=== PATIENT | male | born 1945 | race Caucasian/White ===

== ENCOUNTER 2017-11-19 08:46 | Inpatient (IN) ==
[2017-11-19] MEDS ORDERED: LEVOFLOXACIN INJ 750 MG in PREMIX 1 EACH IV STA (09:04)
[2017-11-19 09:11] LABS: Basophils # 0.2 10*3/uL (0.0-0.2); Basophils % 1.3 % (0.0-0.8); Eosinophils # 0.4 10*3/uL (0.0-0.87); Eosinophils % 3.5 % (0.00-10.9); Hematocrit 49.4 VOL% (42.0-52.0); Hemoglobin 15.7 GM/DL (14.0-18.0); Immature Granulocytes % 0.5 %; Immature Granulocytes Absolute 0.06 #; Lymphocytes # 2.4 10*3/uL (1.4-4.0); Lymphocytes % 21.5 % (21.2-54.2); Mean Corpuscular HGB Conc 31.8 GM/DL (32-36); Mean Corpuscular Hemoglobin 29 PG (27-34); Mean Platelet Volume 8.9 FL (9.6-12.0); Monocytes # 1.2 10*3/uL (0.11-0.8); Monocytes % 11.2 % (1.7-12.7); Neutrophils # 6.9 10*3/uL (1.4-7.4); Platelet Count 296 T/CUMM (130-400); Red Blood Count 5.43 MC/CUMM (3.8-5.5); Red Cell Distribution Width 14.7 % (9.3-17.3); White Blood Count 11.1 T/CUMM (4-12)
[2017-11-19] MEDS ORDERED: ALBUTEROL 2.5 MG/3 ML NEB RESP TX SCH (09:30)
[2017-11-19 09:39] LABS: Apearance,Urine CLEAR (Clear); Bilirubin,Urine Negative (Negative); Blood, Urine Negative (Negative); Glucose,Urine (UA) Negative (Negative); Hyaline Casts,Urine 4 /LPF (0-3); Ketones,Urine Negative (Negative); Mucus,Urine Occasional /LPF (Occasional); Nitrite,Urine Negative (Negative); Protein,Urine Negative; RBC,Urine 1 /HPF (0-4); Urine Color Yellow (Yellow); Urine Specific Gravity 1.009 (1.001-1.035); Urine Urobilinogen < 2.0 EU/DL (0.2-1.0); WBC,Urine <1 /HPF (0-6)
[2017-11-19 09:40] LABS: Alanine Aminotransferase 14 U/L (16-61); Albumin 3.4 G/DL (3.4-5.0); Alkaline Phosphatase 55 U/L (45-117); Aspartate Amino Transferase 16 U/L (0-37); Blood Urea Nitrogen 8 MG/DL (7-18); Calcium 8.8 MG/DL (8.5-10.1); Glucose 117 MG/DL (74-106); Osmolality,Calculated 277.4 MOS/KG (273-304); Potassium 4.2 MMOL/L (3.5-5.1); Sodium 140 MMOL/L (136-145); Total Protein 7.1 G/DL (6.4-8.3)
[2017-11-19 09:52] LABS: Barbiturates Screen,Urine Negative (Negative); Benzodiazepines Screen,Urine Positive (Negative); Cannabinoid Screen,Urine Negative (Negative); Opiate Screen,Urine Positive (Negative); Phencyclidine Screen,Urine Negative (Negative)
[2017-11-19 10:06] LABS: ABG Base Excess 1.2 MMOL/L (-2.5-2.5); ABG HCO3 35.5 MMOL/L (20-26); ABG Oxygen Saturation 95.5 % (95-100); ABG PO2 102.1 MM HG (80-95)
[2017-11-19 10:09] LABS: ABG PH 7.104 (7.35-7.45)
[2017-11-19 10:10] LABS: ABG PCO2 115.8 MM HG (35-48)
[2017-11-19] MEDS ORDERED: FUROSEMIDE 40 MG/4 ML VIAL IV STA (10:14)
[2017-11-19] MEDS ORDERED: FLUMAZENIL 0.5 MG/5 ML VIAL IV ONE (10:54)
[2017-11-19] MEDS ORDERED: NALOXONE 0.4 MG/ML VIAL ONE ×2 (10:57)
[2017-11-19] MEDS ORDERED: NALOXONE 0.4 MG/ML VIAL IV STA (11:05)
[2017-11-19] MEDS ORDERED: hydrALAZINE 20 MG/1 ML VIAL IV PRN (12:09)
[2017-11-19 13:01] LABS: Risk Ratio 2.7; VLDL CHOLESTEROL 28.8 MG/DL
[2017-11-19] MEDS: FUROSEMIDE 40 MG/4 ML VIAL IV SCH (13:27)
[2017-11-19] MEDS: methylPREDNISolone SOD SUC 40 MG/1 ML VIAL IV SCH ×2 (13:29→18:32)
[2017-11-19] MEDS: HEPARIN 5,000 UNIT/1 ML VIAL SUBCUT SCH (13:32)
[2017-11-19] MEDS: ALBUTEROL/IPRATROPIUM 3 ML NEB RESP TX SCH (13:42)
[2017-11-19 15:24] LABS: ABG Base Excess -0.7 MMOL/L (-2.5-2.5); ABG HCO3 23.8 MMOL/L (20-26); ABG Oxygen Saturation 98.6 % (95-100); ABG TCO2 28.9 MMOL/L (23-27)
[2017-11-19 15:26] LABS: ABG PH 7.168 (7.35-7.45)
[2017-11-19 15:28] LABS: ABG PCO2 90.3 MM HG (35-48)
[2017-11-19 17:11] LABS: ABG Base Excess 1.5 MMOL/L (-2.5-2.5); ABG HCO3 25.5 MMOL/L (20-26); ABG PH 7.238 (7.35-7.45); ABG PO2 57.5 MM HG (80-95); ABG TCO2 28.5 MMOL/L (23-27)
[2017-11-19 17:21] LABS: ABG PCO2 77.1 MM HG (35-48)
[2017-11-20] MEDS: ALBUTEROL/IPRATROPIUM 3 ML NEB RESP TX SCH ×5 (00:03→21:14)
[2017-11-20] MEDS: methylPREDNISolone SOD SUC 40 MG/1 ML VIAL IV SCH ×4 (00:23→18:57)
[2017-11-20] MEDS: HEPARIN 5,000 UNIT/1 ML VIAL SUBCUT SCH ×4 (00:25→21:37)
[2017-11-20 03:46] LABS: ABG Base Excess 4.8 MMOL/L (-2.5-2.5); ABG HCO3 28.6 MMOL/L (20-26); ABG Oxygen Saturation 90.6 % (95-100); ABG PCO2 66.3 MM HG (35-48); ABG PH 7.316 (7.35-7.45); ABG PO2 61.8 MM HG (80-95); ABG TCO2 29.5 MMOL/L (23-27); Allen Test Positive; Pt O2 Delivery Device BIPAP
[2017-11-20 04:36] LABS: Basophils % 0.1 % (0.0-0.8); Hematocrit 47.9 VOL% (42.0-52.0); Hemoglobin 14.7 GM/DL (14.0-18.0); Immature Granulocytes % 0.7 %; Immature Granulocytes Absolute 0.05 #; Lymphocytes # 0.5 10*3/uL (1.4-4.0); Lymphocytes % 6.1 % (21.2-54.2); Mean Corpuscular HGB Conc 30.7 GM/DL (32-36); Mean Corpuscular Hemoglobin 28 PG (27-34); Mean Corpuscular Volume 92.3 FL (87-102); Mean Platelet Volume 9.7 FL (9.6-12.0); Monocytes # 0.1 10*3/uL (0.11-0.8); Monocytes % 1.2 % (1.7-12.7); Neutrophils % 91.9 % (38.7-73.9); Platelet Count 243 T/CUMM (130-400); Red Blood Count 5.19 MC/CUMM (3.8-5.5); Red Cell Distribution Width 14.5 % (9.3-17.3); White Blood Count 7.6 T/CUMM (4-12)
[2017-11-20 04:55] LABS: Bilirubin,Total 0.5 MG/DL (0.2-1.0); Calcium 8.8 MG/DL (8.5-10.1); Osmolality,Calculated 280.4 MOS/KG (273-304); Potassium 4.9 MMOL/L (3.5-5.1); Total Protein 6.8 G/DL (6.4-8.3)
[2017-11-20 05:20] LABS: Band Neutrophils 1 % (0-10); Eosinophils 1 % (0-10); Hypochromasia 1+; Lymphocytes 5 % (20-55); Platelet Estimate Adequate; Segmented Neutrophils 93 % (50-85); Total Cells Counted 100
[2017-11-20] MEDS ORDERED: FUROSEMIDE 20 MG/2 ML VIAL ONE (08:50)
[2017-11-20] MEDS ORDERED: LEVOFLOXACIN INJ 250 MG in PREMIX 1 EACH IV SCH (09:00)
[2017-11-20] MEDS ORDERED: PANTOPRAZOLE 40 MG VIAL IV SCH (09:00)
[2017-11-20] MEDS: FUROSEMIDE 40 MG/4 ML VIAL IV SCH (09:28)
[2017-11-20] MEDS: PIPERACILLIN/TAZOBACTAM 3,375 MG in SODIUM CHLORIDE 0.9% 100 ML IV SCH ×2 (09:53→17:32)
[2017-11-20] MEDS: BENZTROPINE 0.5 MG TABLET PO SCH (21:36)
[2017-11-20] MEDS: DIVALPROEX ER 500 MG TABLET PO SCH (21:36)
[2017-11-20] MEDS: MIRTAZAPINE 15 MG TABLET PO SCH (21:36)
[2017-11-20] MEDS: rOPINIRole 1 MG TABLET PO SCH (21:36)
[2017-11-20] MEDS: OLANZapine 5 MG TABLET PO SCH (21:36)
[2017-11-20] MEDS: ZALEPLON 5 MG CAPSULE PO PRN (22:30)
[2017-11-21] MEDS: ALBUTEROL/IPRATROPIUM 3 ML NEB RESP TX SCH ×4 (01:08→19:15)
[2017-11-21] MEDS: methylPREDNISolone SOD SUC 40 MG/1 ML VIAL IV SCH ×3 (01:55→13:51)
[2017-11-21] MEDS: PIPERACILLIN/TAZOBACTAM 3,375 MG in SODIUM CHLORIDE 0.9% 100 ML IV SCH ×3 (01:58→18:25)
[2017-11-21 04:20] LABS: Basophils % 0.1 % (0.0-0.8); Hematocrit 42.3 VOL% (42.0-52.0); Hemoglobin 13.8 GM/DL (14.0-18.0); Immature Granulocytes % 0.5 %; Immature Granulocytes Absolute 0.06 #; Lymphocytes # 0.9 10*3/uL (1.4-4.0); Lymphocytes % 7.3 % (21.2-54.2); Mean Corpuscular HGB Conc 32.6 GM/DL (32-36); Mean Corpuscular Hemoglobin 29 PG (27-34); Mean Corpuscular Volume 87.2 FL (87-102); Mean Platelet Volume 9.9 FL (9.6-12.0); Monocytes # 0.4 10*3/uL (0.11-0.8); Monocytes % 3.4 % (1.7-12.7); Neutrophils # 10.8 10*3/uL (1.4-7.4); Neutrophils % 88.7 % (38.7-73.9); Platelet Count 258 T/CUMM (130-400); Red Blood Count 4.85 MC/CUMM (3.8-5.5); Red Cell Distribution Width 14.5 % (9.3-17.3); White Blood Count 12.2 T/CUMM (4-12)
[2017-11-21] MEDS: HEPARIN 5,000 UNIT/1 ML VIAL SUBCUT SCH ×3 (05:44→21:10)
[2017-11-21 05:46] LABS: Albumin 2.8 G/DL (3.4-5.0); Bilirubin,Total 0.4 MG/DL (0.2-1.0); Calcium 8.4 MG/DL (8.5-10.1); Osmolality,Calculated 284.4 MOS/KG (273-304); Potassium 4.2 MMOL/L (3.5-5.1); Total Protein 6.2 G/DL (6.4-8.3)
[2017-11-21] MEDS ORDERED: NIFEdipine 10 MG CAPSULE PO PRN (08:32)
[2017-11-21] MEDS: BENZTROPINE 0.5 MG TABLET PO SCH ×2 (08:51→21:03)
[2017-11-21] MEDS: rOPINIRole 1 MG TABLET PO SCH ×2 (08:51→21:03)
[2017-11-21] MEDS: PANTOPRAZOLE 40 MG TABLET PO SCH (08:59)
[2017-11-21] MEDS: FUROSEMIDE 40 MG TABLET PO SCH (08:59)
[2017-11-21] MEDS: NICOTINE 21 MG/24 HR PATCH TRANSDERM SCH (09:00)
[2017-11-21] MEDS: MIRTAZAPINE 15 MG TABLET PO SCH (21:03)
[2017-11-21] MEDS: OLANZapine 5 MG TABLET PO SCH (21:03)
[2017-11-21] MEDS: DIVALPROEX ER 500 MG TABLET PO SCH (21:03)
[2017-11-21] MEDS: ZALEPLON 5 MG CAPSULE PO PRN (21:05)
[2017-11-22] MEDS: methylPREDNISolone SOD SUC 40 MG/1 ML VIAL IV SCH (00:09)
[2017-11-22] MEDS: PIPERACILLIN/TAZOBACTAM 3,375 MG in SODIUM CHLORIDE 0.9% 100 ML IV SCH (01:09)
[2017-11-22] MEDS: ALBUTEROL/IPRATROPIUM 3 ML NEB RESP TX SCH ×4 (01:49→20:01)
[2017-11-22] MEDS: HEPARIN 5,000 UNIT/1 ML VIAL SUBCUT SCH ×3 (04:36→21:01)
[2017-11-22 05:32] LABS: Hemoglobin 14.3 GM/DL (14.0-18.0); Immature Granulocytes % 0.5 %; Immature Granulocytes Absolute 0.04 #; Lymphocytes # 0.6 10*3/uL (1.4-4.0); Lymphocytes % 8.1 % (21.2-54.2); Mean Corpuscular HGB Conc 33.3 GM/DL (32-36); Mean Corpuscular Hemoglobin 29 PG (27-34); Mean Corpuscular Volume 86.5 FL (87-102); Mean Platelet Volume 9.5 FL (9.6-12.0); Monocytes # 0.2 10*3/uL (0.11-0.8); Neutrophils # 6.6 10*3/uL (1.4-7.4); Neutrophils % 88.4 % (38.7-73.9); Platelet Count 233 T/CUMM (130-400); Red Blood Count 4.97 MC/CUMM (3.8-5.5); Red Cell Distribution Width 14.6 % (9.3-17.3); White Blood Count 7.4 T/CUMM (4-12)
[2017-11-22 05:48] LABS: Albumin 3.2 G/DL (3.4-5.0); Bilirubin,Total 0.5 MG/DL (0.2-1.0); Calcium 8.5 MG/DL (8.5-10.1); Potassium 3.9 MMOL/L (3.5-5.1); Total Protein 6.3 G/DL (6.4-8.3)
[2017-11-22] MEDS: NICOTINE 21 MG/24 HR PATCH TRANSDERM SCH (08:23)
[2017-11-22] MEDS: rOPINIRole 1 MG TABLET PO SCH ×2 (08:23→21:01)
[2017-11-22] MEDS: BENZTROPINE 0.5 MG TABLET PO SCH ×2 (08:23→21:01)
[2017-11-22] MEDS: FUROSEMIDE 40 MG TABLET PO SCH (08:23)
[2017-11-22] MEDS: PANTOPRAZOLE 40 MG TABLET PO SCH (08:24)
[2017-11-22] MEDS: LEVOFLOXACIN 250 MG TABLET PO SCH (09:33)
[2017-11-22] MEDS: DIVALPROEX ER 500 MG TABLET PO SCH (21:01)
[2017-11-22] MEDS: MIRTAZAPINE 15 MG TABLET PO SCH (21:01)
[2017-11-22] MEDS: OLANZapine 5 MG TABLET PO SCH (21:01)
[2017-11-23] MEDS: ALBUTEROL/IPRATROPIUM 3 ML NEB RESP TX SCH ×3 (01:42→14:05)
[2017-11-23] MEDS: HEPARIN 5,000 UNIT/1 ML VIAL SUBCUT SCH ×2 (04:26→13:31)
[2017-11-23 05:58] LABS: Basophils % 0.4 % (0.0-0.8); Eosinophils # 0.1 10*3/uL (0.0-0.87); Eosinophils % 0.9 % (0.00-10.9); Hematocrit 45.2 VOL% (42.0-52.0); Hemoglobin 14.6 GM/DL (14.0-18.0); Immature Granulocytes % 0.4 %; Immature Granulocytes Absolute 0.02 #; Lymphocytes # 1.5 10*3/uL (1.4-4.0); Lymphocytes % 27.2 % (21.2-54.2); Mean Corpuscular HGB Conc 32.3 GM/DL (32-36); Mean Corpuscular Hemoglobin 28 PG (27-34); Mean Corpuscular Volume 87.9 FL (87-102); Mean Platelet Volume 9.3 FL (9.6-12.0); Monocytes # 0.6 10*3/uL (0.11-0.8); Monocytes % 11.7 % (1.7-12.7); Neutrophils # 3.2 10*3/uL (1.4-7.4); Neutrophils % 59.4 % (38.7-73.9); Platelet Count 212 T/CUMM (130-400); Red Blood Count 5.14 MC/CUMM (3.8-5.5); Red Cell Distribution Width 14.9 % (9.3-17.3); White Blood Count 5.5 T/CUMM (4-12)
[2017-11-23 06:37] LABS: Albumin 3.1 G/DL (3.4-5.0); Bilirubin,Total 0.5 MG/DL (0.2-1.0); Calcium 8.6 MG/DL (8.5-10.1); Osmolality,Calculated 294.6 MOS/KG (273-304); Potassium 3.4 MMOL/L (3.5-5.1); Total Protein 6.4 G/DL (6.4-8.3)
[2017-11-23] MEDS: rOPINIRole 1 MG TABLET PO SCH (08:56)
[2017-11-23] MEDS ORDERED: methylPREDNISolone SOD SUC 40 MG/1 ML VIAL IV SCH (09:00)
[2017-11-23] MEDS: BENZTROPINE 0.5 MG TABLET PO SCH (09:01)
[2017-11-23] MEDS: LEVOFLOXACIN 250 MG TABLET PO SCH (09:02)
[2017-11-23] MEDS: FUROSEMIDE 40 MG TABLET PO SCH (09:02)
[2017-11-23] MEDS: NICOTINE 21 MG/24 HR PATCH TRANSDERM SCH (09:02)
[2017-11-23] MEDS: PANTOPRAZOLE 40 MG TABLET PO SCH (09:02)
[2017-11-23] MEDS ORDERED: POTASSIUM CHLORIDE RIDER 10 MEQ in PREMIX 1 EACH IV PRN (10:32)
[2017-11-23] MEDS ORDERED: POTASSIUM CHLORIDE 20 MEQ TABLET PO PRN (10:32)
[2017-11-23] MEDS ORDERED: BISACODYL 10 MG SUPP RECTAL ONE (10:55)
[2017-11-23] MEDS ORDERED: DOCUSATE SODIUM 100 MG CAPSULE PO SCH (11:30)
[2017-11-23 12:29] VITALS: BP 159/95
[2017-11-23] MEDS ORDERED: hydrALAZINE 20 MG/1 ML VIAL IV ONE (13:17)
[2017-11-23] MEDS ORDERED: POLYETHYLENE GLYCOL POWDER 17 GM PACK PO SCH (21:00)
[2017-11-23] MEDS ORDERED: traZODone 50 MG TABLET PO SCH (21:00)
[2017-12-04] MEDS ORDERED: diphenhydrAMINE CAP 25 MG CAPSULE PO PRN (19:25)
[2017-12-04] MEDS ORDERED: SODIUM CHLORIDE 0.9% 1,000 ML IV PRN (19:25)
[2017-12-04] MEDS ORDERED: ACETAMINOPHEN 325 MG TABLET PO PRN (19:25)
[2017-12-05] MEDS ORDERED: predniSONE 20 MG TABLET PO SCH (09:00)
== END 2017-11-23 14:40 | disposition swing bed (61) | DRG 917 ==
LOC: EDUNIT# → EDBD → N.ED 08:46 → SUATTDRO 11:00 → N.EDINP 11:00 → N.CC 11:26 → N.4E 11-21 18:30
PROVIDERS: ADMIT Internal Medicine Nephrology; ATTEND Hospitalist

== ENCOUNTER 2017-12-04 11:44 | Inpatient (IN) ==
[2017-12-07 09:42] VITALS: BP 106/67
== END 2017-12-07 11:18 | disposition home health service (06) | DRG 813 ==
LOC: EDBD → EDUNIT# → N.EDINP 11:44 → N.ED 11:44 → SUATTDRO 13:42 → N.4E 14:45 → SUATTDRO 12-05 14:55
PROVIDERS: ADMIT Internal Medicine; ATTEND Internal Medicine